=== PATIENT | male | born 1995 | race Caucasian/White ===

== ENCOUNTER 2017-10-19 16:58 | Emergency (ER) | payer BC ==
[2017-10-19 17:04] VITALS: BP 143/87
[2017-10-19] MEDS ORDERED: DEXAMETHASONE 4 MG TAB PO ONE (17:57)
--- NOTE | 2017-10-19 17:58 | EDPHY ---
H & P Time Seen by Provider: 10/19/17 17:39 HPI/ROS: CHIEF COMPLAINT: Swollen tonsils HISTORY OF PRESENT ILLNESS: He was diagnosed 4 days ago with a positive mononucleosis test at the [facility]. He is here today because his tonsils are feeling swollen is having difficulty with swallowing. Is able to take oral fluids and swallow pills but it is painful. REVIEW OF SYSTEMS: Left ear symptoms. No headache or chest pain. PAST MEDICAL HISTORY: Negative Social history: Student General Appearance: Alert and conversant, cooperative. Normal tympanic membranes. Normal range of motion of the neck. Voice is a little bit hoarse but no stridor or drooling. No trismus but bilateral tonsillar exudate and swelling. Uvula is midline. Breath sounds equal bilaterally. Emergency Department course/MDM: Patient is moist mucous membranes, does not appear to have severe dehydration or acute airway compromise. Steroids were suggested by the patient's primary care physician in [place] which I think is reasonable. Dexamethasone discussed and consented. Smoking Status: Never smoked Constitutional: Initial Vital Signs Temperature (C) 36.9 C 10/19/17 17:02 Heart Rate 96 10/19/17 17:02 Respiratory Rate 18 10/19/17 17:02 Blood Pressure 143/87 H 10/19/17 17:02 O2 Sat (%) 95 10/19/17 17:02 O2 Delivery Mode Room Air Allergies/Adverse Reactions: No Known Allergies Allergy (Unverified 10/19/17 17:02) Home Medications: Medication Instructions Recorded Ibuprofen 10/19/17 methylPREDNISolone [Medrol Dose 1 each PO AD #1 ea 10/19/17 John] MDM/Departure - MDM Medications Given: Discontinued Medications Dexamethasone (Decadron) 8 mg PO EDNOW ONE Stop: 10/19/17 17:58 Last Admin: 10/19/17 18:02 Dose: 8 mg - Depart Disposition: Home, Routine, Self-Care Clinical Impression: Mononucleosis Condition: Good Instructions: Mononucleosis (ED) Prescriptions: methylPREDNISolone [Medrol Dose John] 1 each PO AD #1 ea Referrals: Farooq Jones MD [Medical Doctor] - 2-3 days, if not improved
== END 2017-10-19 17:55 | disposition home or self-care (01) ==
DX: B27.90 Infectious mononucleosis, unspecified without complication (principal)